=== PATIENT | male | born 1945 | race Caucasian/White ===

== ENCOUNTER 2021-07-27 15:25 | Inpatient (IN) | payer MEDICARE, BC ==
[~2021-07-27] VITALS: Ht 180.3 cm; Wt 104.5 kg
[2021-07-27 16:35] LABS: BASOPHILS % (AUTO) 0.3 % (0-1); EOSINOPHILS # (AUTO) 0.1 X10'3 (0-0.9); EOSINOPHILS % (AUTO) 1.2 % (0-6); HEMATOCRIT 42.6 % (42.0-52.0); HEMOGLOBIN 14.9 g/dl (14.0-17.9); LYMPHOCYTES # (AUTO) 1.4 X10'3 (1.1-4.8); LYMPHOCYTES % (AUTO) 11.8 % (21-51); MEAN CORPUSCULAR HEMOGLOBIN 32.6 PG (27.0-31.0); MEAN CORPUSCULAR HGB CONC 35.1 g/dL (33.0-36.5); MEAN CORPUSCULAR VOLUME 92.9 FL (78-98); MEAN PLATELET VOLUME 7.5 FL (7.4-10.4); MONOCYTES # (AUTO) 0.9 X10'3 (0-0.9); MONOCYTES % (AUTO) 7.9 % (2-12); NEUTROPHILS # (AUTO) 9.4 X10'3 (1.8-7.7); NEUTROPHILS % (AUTO) 78.8 % (42-75); PLATELET COUNT 304 X10'3 (140-440); RED BLOOD COUNT 4.58 X10'6 (4.70-6.10); RED CELL DISTRIBUTION WIDTH 12.8 % (11.5-14.5); WHITE BLOOD COUNT 11.9 X10'3 (4.5-11.0)
[2021-07-27 16:49] LABS: ALANINE AMINOTRANSFERASE 30 U/L (12-78); ALBUMIN 3.7 G/DL (3.4-5.0); ALBUMIN/GLOBULIN RATIO 0.7 (1.1-1.5); ALKALINE PHOSPHATASE 72 IU/L (46-116); ANION GAP 15 (8-16); ASPARTATE AMINO TRANSFERASE 13 U/L (10-37); BLOOD UREA NITROGEN 81 MG/DL (7-18); BUN/CREATININE RATIO 10.4 (5.4-32.0); CALCIUM 9.6 MG/DL (8.5-10.1); CHLORIDE 106 MMOL/L (99-107); CREATININE 7.77 MG/DL (0.60-1.10); GLUCOSE 113 MG/DL (70-104); LIPASE 205 U/L (73-393); POTASSIUM 4.1 MMOL/L (3.5-5.1); SODIUM 143 MMOL/L (135-145); TOTAL CARBON DIOXIDE 21.8 MMOL/L (24-32); TOTAL PROTEIN 8.8 G/DL (6.4-8.2); eGFR 7 ML/MIN
[2021-07-27 17:16] LABS: CLARITY,URINE CLOUDY (Clear); COLOR,URINE YELLOW (Yellow); GLUCOSE, URINE NEGATIVE (Neg); KETONES,URINE NEGATIVE (Neg); PROTEIN,URINE 30 mg/dl (Neg); UA COLLECTION TYPE VOIDED
[2021-07-27 17:17] LABS: LEUKOCYTE ESTERASE ,URINE NEGATIVE (Neg); NITRITES, URINE NEGATIVE (Neg); OCCULT BLOOD,URINE LARGE (Neg); UROBILINOGEN,URINE 0.2 E.U/dL (0.2-1.0)
[2021-07-27 17:32] LABS: RBC,URINE TNTC /HPF (0-2); SQUAMOUS EPITHELIAL CELL,UR FEW /LPF (FEW)
[2021-07-27 17:33] LABS: BACTERIA,URINE 1+ /HPF (Neg)
--- NOTE | 2021-07-27 19:38 | NUR ---
MD PINTO AT BEDSIDE. NEPHROLOGY CONSULT.
[2021-07-27] MEDS ORDERED: temazepam 15mg capsule PO PRN (21:00)
[2021-07-27] MEDS ORDERED: acetaminophen 325mg tablet PO PRN ×2 (21:05)
[2021-07-27] MEDS ORDERED: acetaminophen 650mg rectal suppository RC PRN (21:05)
[2021-07-27] MEDS ORDERED: LORazepam 2 mg/ml vial IV PRN (21:05)
[2021-07-27] MEDS: sodium chloride 0.45% 1,000 ML IV SCH (21:05)
[2021-07-27] MEDS ORDERED: mag hydrox/Alum hydrox/simeth 30ml oral suspension PO PRN (21:05)
[2021-07-27] MEDS ORDERED: HYDROcodone/acetaminophen 5mg/325mg tablet PO PRN (21:05)
[2021-07-27] MEDS ORDERED: diphenhydrAMINE 25mg capsule PO PRN (21:05)
[2021-07-27] MEDS ORDERED: ondansetron/PF 4mg/2ml inj IV PRN (21:05)
[2021-07-27] MEDS ORDERED: ondansetron 4mg rapidly disintigrating tab PO PRN (21:05)
[2021-07-27] MEDS ORDERED: haloperidol 5mg tablet PO PRN (21:05)
[2021-07-27] MEDS ORDERED: diphenhydrAMINE 50 mg/ml inj IV PRN (21:05)
[2021-07-27] MEDS ORDERED: bisacodyl 10mg suppository rectal RC PRN (21:05)
[2021-07-27] MEDS ORDERED: haloperidol lactate 5mg/ml inj IM PRN (21:05)
[2021-07-27] MEDS ORDERED: morphine 2 MG/ML inj. syringe IV PRN (21:05)
[2021-07-27] MEDS ORDERED: magnesium hydroxide 30ml (MOM) UD suspension PO PRN (21:05)
[2021-07-27 21:46] LABS: HEMOGLOBIN A1C 5.5 % (4.5-6.2)
[2021-07-27 21:47] LABS: PARTIAL THROMBOPLASTIN TIME 34 SECONDS (22-32)
[2021-07-27 21:57] LABS: CREATINE KINASE 26 U/L (39-308); ETHANOL < 0.010 GM/DL (0.0-0.010); MAGNESIUM 2.3 MG/DL (1.5-2.4); PHOSPHORUS 4.2 MG/DL (2.3-4.5)
--- NOTE | 2021-07-27 23:09 | NUR ---
UPDATED DR. RODRIGUEZ WITH PT VITALS. SBP 160. OKAYED TO HOLD BP MEDS.
[2021-07-27] MEDS ORDERED: hydrALAZINE 20mg/ml inj. IV PRN (23:35)
[2021-07-28] MEDS: amLODIPine 5mg tablet PO SCH ×2 (00:24→07:44)
[2021-07-28 00:57] LABS: BASOPHILS % (AUTO) 0.4 % (0-1); EOSINOPHILS # (AUTO) 0.3 X10'3 (0-0.9); EOSINOPHILS % (AUTO) 2.3 % (0-6); HEMATOCRIT 39.3 % (42.0-52.0); HEMOGLOBIN 13.8 g/dl (14.0-17.9); LYMPHOCYTES # (AUTO) 1.6 X10'3 (1.1-4.8); LYMPHOCYTES % (AUTO) 14.9 % (21-51); MEAN CORPUSCULAR HEMOGLOBIN 32.5 PG (27.0-31.0); MEAN CORPUSCULAR HGB CONC 35.2 g/dL (33.0-36.5); MEAN CORPUSCULAR VOLUME 92.4 FL (78-98); MEAN PLATELET VOLUME 7.4 FL (7.4-10.4); MONOCYTES % (AUTO) 9.6 % (2-12); NEUTROPHILS # (AUTO) 7.8 X10'3 (1.8-7.7); NEUTROPHILS % (AUTO) 72.8 % (42-75); PLATELET COUNT 272 X10'3 (140-440); RED BLOOD COUNT 4.26 X10'6 (4.70-6.10); RED CELL DISTRIBUTION WIDTH 12.7 % (11.5-14.5); WHITE BLOOD COUNT 10.8 X10'3 (4.5-11.0)
[2021-07-28 01:16] LABS: ALANINE AMINOTRANSFERASE 29 U/L (12-78); ALBUMIN 3.3 G/DL (3.4-5.0); ALBUMIN/GLOBULIN RATIO 0.7 (1.1-1.5); ALKALINE PHOSPHATASE 64 IU/L (46-116); ANION GAP 10 (8-16); ASPARTATE AMINO TRANSFERASE 15 U/L (10-37); BILIRUBIN,TOTAL 0.9 MG/DL (0.1-1.0); BLOOD UREA NITROGEN 58 MG/DL (7-18); BUN/CREATININE RATIO 14.6 (5.4-32.0); CALCIUM 9.2 MG/DL (8.5-10.1); CHLORIDE 109 MMOL/L (99-107); CHOL/HDL RATIO 5.6 (0.00-4.99); CHOLESTEROL 195 MG/DL (0-200); CREATININE 3.97 MG/DL (0.60-1.10); GLUCOSE 101 MG/DL (70-104); HDL CHOLESTEROL 35 MG/DL (35-60); LDL CHOLESTEROL 143 MG/DL (50-100); POTASSIUM 4.4 MMOL/L (3.5-5.1); SODIUM 143 MMOL/L (135-145); TOTAL CARBON DIOXIDE 24.5 MMOL/L (24-32); TRIGLYCERIDES 120 MG/DL (20-135); eGFR 15 ML/MIN
[2021-07-28 02:00] VITALS: BP 137/68
[2021-07-28] MEDS: niCARDipine-NS 40mg/200ml IVPB 200 ML IV SCH ×4 (03:30→22:47)
--- NOTE | 2021-07-28 06:49 | NUR ---
ULTRASOUND AT BEDSIDE.
[2021-07-28] MEDS: pantoprazole 40mg Tablet.DR PO SCH (07:43)
[2021-07-28] MEDS: CefTRIAXone/D5W-Rocephin 1gm 50 ML IV SCH (07:45)
[2021-07-28] MEDS: docusate sod 100mg capsule PO SCH ×2 (07:45→21:23)
[2021-07-28] MEDS ORDERED: folic acid 1mg/0.2ml inj IV SCH (08:00)
[2021-07-28] MEDS ORDERED: folic acid inj. 2 MG, thiamine inj. 100 MG, MVI, adult No.4 with vit. K 10 ML in dextro... IV SCH ×4 (08:00)
[2021-07-28] MEDS ORDERED: thiamine inj. 100 MG in normal saline 100ml IV soln 100 ML IV SCH (08:00)
[2021-07-28] MEDS: thiamine 100mg tablet PO SCH (10:55)
[2021-07-28] MEDS: sodium chloride 0.45% 1,000 ML IV SCH ×2 (12:13→21:20)
[2021-07-28] MEDS ORDERED: NO HOME MEDS (13:16)
[2021-07-28] MEDS: lactobacillus rhamnosus 10,000 MMU CELLS/CAPSULE PO SCH (21:23)
[2021-07-28 22:00] VITALS: BP 144/71
[2021-07-29] MEDS ORDERED: LORazepam 1 MG tablet PO PRN (01:25)
[2021-07-29] MEDS: LORazepam 1 MG tablet PO PRN (01:37)
[2021-07-29] MEDS: niCARDipine-NS 40mg/200ml IVPB 200 ML IV SCH ×2 (04:22→08:16)
[2021-07-29 06:00] VITALS: BP 115/58
[2021-07-29 07:04] LABS: BASOPHILS % (AUTO) 0.5 % (0-1); EOSINOPHILS # (AUTO) 0.3 X10'3 (0-0.9); EOSINOPHILS % (AUTO) 2.6 % (0-6); HEMATOCRIT 35.2 % (42.0-52.0); HEMOGLOBIN 12.5 g/dl (14.0-17.9); LYMPHOCYTES # (AUTO) 1.2 X10'3 (1.1-4.8); LYMPHOCYTES % (AUTO) 11.9 % (21-51); MEAN CORPUSCULAR HEMOGLOBIN 32.7 PG (27.0-31.0); MEAN CORPUSCULAR HGB CONC 35.4 g/dL (33.0-36.5); MEAN CORPUSCULAR VOLUME 92.5 FL (78-98); MEAN PLATELET VOLUME 7.9 FL (7.4-10.4); MONOCYTES % (AUTO) 9.5 % (2-12); NEUTROPHILS # (AUTO) 7.7 X10'3 (1.8-7.7); NEUTROPHILS % (AUTO) 75.5 % (42-75); PLATELET COUNT 272 X10'3 (140-440); RED BLOOD COUNT 3.81 X10'6 (4.70-6.10); RED CELL DISTRIBUTION WIDTH 12.6 % (11.5-14.5); WHITE BLOOD COUNT 10.2 X10'3 (4.5-11.0)
--- NOTE | 2021-07-29 07:07 | NUR ---
Problems reprioritized. Patient report given, questions answered & plan of care reviewed with PARISH DENNY.
[2021-07-29 07:24] LABS: ALANINE AMINOTRANSFERASE 20 U/L (12-78); ALBUMIN 2.6 G/DL (3.4-5.0); ALBUMIN/GLOBULIN RATIO 0.7 (1.1-1.5); ALKALINE PHOSPHATASE 52 IU/L (46-116); ANION GAP 12 (8-16); ASPARTATE AMINO TRANSFERASE 20 U/L (10-37); BILIRUBIN,TOTAL 0.6 MG/DL (0.1-1.0); BLOOD UREA NITROGEN 30 MG/DL (7-18); BUN/CREATININE RATIO 20.4 (5.4-32.0); CHLORIDE 113 MMOL/L (99-107); CREATININE 1.47 MG/DL (0.60-1.10); GLUCOSE 118 MG/DL (70-104); SODIUM 146 MMOL/L (135-145); TOTAL CARBON DIOXIDE 21.2 MMOL/L (24-32); TOTAL PROTEIN 6.3 G/DL (6.4-8.2); eGFR 47 ML/MIN
[2021-07-29] MEDS: docusate sod 100mg capsule PO SCH ×2 (08:00→20:05)
[2021-07-29] MEDS: sodium chloride 0.45% 1,000 ML IV SCH (08:07)
[2021-07-29] MEDS: CefTRIAXone/D5W-Rocephin 1gm 50 ML IV SCH (08:21)
--- NOTE | 2021-07-29 09:23 | NUR ---
PTT resuletd 38, clam bed laborer arrived just now to redraw, they had a concern that the sample clotted. awaiting new ptt and continuing at current rate.
--- NOTE | 2021-07-29 10:00 | NUR ---
MD Aguilar rounded on pt. bp 119, she wants cardeen gtt off and is aware he has not had po coverage yet. gtt stopped. po given shortly after. call to pharmacy for am dose of mucomyst
[2021-07-29] MEDS: lactobacillus rhamnosus 10,000 MMU CELLS/CAPSULE PO SCH ×2 (10:01→20:06)
[2021-07-29] MEDS: amLODIPine 5mg tablet PO SCH ×2 (10:01→20:05)
[2021-07-29] MEDS: pantoprazole 40mg Tablet.DR PO SCH (10:01)
[2021-07-29] MEDS: folic acid 1mg tablet PO SCH (10:02)
[2021-07-29] MEDS: thiamine 100mg tablet PO SCH (10:02)
[2021-07-29] MEDS: normal saline 1000ml 1,000 ML IV SCH (10:07)
[2021-07-29] MEDS: acetylcysteine 200 MG/ml 4ml vial PO SCH ×2 (10:16→20:09)
[2021-07-29 11:00] VITALS: BP 134/69
--- NOTE | 2021-07-29 12:45 | NUR ---
oob to chair with PT, mri transporting to mri now. went home, she was getting frustrated with his redirecting anger at her. currently [facility]. tele removed for transport.
--- NOTE | 2021-07-29 13:26 | NUR ---
return from mri and back on monitor. stable, back to bed, sitter in room attentive. eating meal
[2021-07-29 15:00] VITALS: BP 151/89
--- NOTE | 2021-07-29 16:33 | NUR ---
after 2 pages to pharmacy for medication , placed a phone call for mucomyst to be deliered. arrived apro 10 min ago. next dose due shortly to be on schedule.
[2021-07-29 18:00] VITALS: BP 149/81
--- NOTE | 2021-07-29 18:00 | NUR ---
MD Aguilar ordered tele neuro consult and tele neuro device being brought from icu per charge nurse
--- NOTE | 2021-07-29 18:44 | NUR ---
Patient in room PCU 3025. I have received report from DENISHA Briones and had the opportunity to ask questions and assume patient care.
--- NOTE | 2021-07-29 18:46 | NUR ---
Patient in room PCU 3025. I have received report from Anselmo DENNY and had the opportunity to ask questions and assume patient care.
--- NOTE | 2021-07-29 18:50 | NUR ---
Problems reprioritized. Patient report given, questions answered & plan of care reviewed with Delmis DENNY.
[2021-07-29] MEDS ORDERED: LORazepam 2 mg/ml vial IV PRN (21:05)
[2021-07-29 22:00] VITALS: BP 159/91
[2021-07-30 02:00] VITALS: BP 158/86
[2021-07-30] MEDS: normal saline 1000ml 1,000 ML IV SCH ×3 (02:15→20:02)
--- NOTE | 2021-07-30 06:30 | NUR ---
Patient in room PCU 3025. I have received report from Fannie MTZ and had the opportunity to ask questions and assume patient care.
--- NOTE | 2021-07-30 06:30 | NUR ---
Problems reprioritized. Patient report given, questions answered & plan of care reviewed with DENISHA Herrera.
[2021-07-30 06:57] LABS: BASOPHILS # (AUTO) 0.1 X10'3 (0-0.2); BASOPHILS % (AUTO) 0.7 % (0-1); EOSINOPHILS # (AUTO) 0.4 X10'3 (0-0.9); EOSINOPHILS % (AUTO) 3.9 % (0-6); HEMATOCRIT 40.4 % (42.0-52.0); HEMOGLOBIN 14.2 g/dl (14.0-17.9); LYMPHOCYTES # (AUTO) 1.5 X10'3 (1.1-4.8); LYMPHOCYTES % (AUTO) 14.1 % (21-51); MEAN CORPUSCULAR HEMOGLOBIN 32.7 PG (27.0-31.0); MEAN CORPUSCULAR HGB CONC 35.1 g/dL (33.0-36.5); MONOCYTES # (AUTO) 0.8 X10'3 (0-0.9); MONOCYTES % (AUTO) 7.6 % (2-12); NEUTROPHILS % (AUTO) 73.7 % (42-75); PLATELET COUNT 337 X10'3 (140-440); RED BLOOD COUNT 4.35 X10'6 (4.70-6.10); RED CELL DISTRIBUTION WIDTH 12.7 % (11.5-14.5); WHITE BLOOD COUNT 10.8 X10'3 (4.5-11.0)
--- NOTE | 2021-07-30 06:58 | NUR ---
Student documentation: I have reviewed and agree with all interventions, assessments performed and documented by Suma Godinez Student Medication Administration: For this medication-pass time frame, all medication were reviewed, dispensed, administered and documented per hospital policy by Suma Godinez.
[2021-07-30 07:00] VITALS: BP 156/91
[2021-07-30 07:01] LABS: ANION GAP 14 (8-16); CHLORIDE 109 MMOL/L (99-107); GLUCOSE 104 MG/DL (70-104); POTASSIUM 3.6 MMOL/L (3.5-5.1); SODIUM 145 MMOL/L (135-145); TOTAL CARBON DIOXIDE 21.8 MMOL/L (24-32)
[2021-07-30 07:02] LABS: ALANINE AMINOTRANSFERASE 20 U/L (12-78); ALBUMIN 3.1 G/DL (3.4-5.0); ALBUMIN/GLOBULIN RATIO 0.8 (1.1-1.5); ALKALINE PHOSPHATASE 60 IU/L (46-116); ASPARTATE AMINO TRANSFERASE 21 U/L (10-37); BILIRUBIN,TOTAL 0.7 MG/DL (0.1-1.0); BLOOD UREA NITROGEN 16 MG/DL (7-18); BUN/CREATININE RATIO 13.7 (5.4-32.0); CALCIUM 8.2 MG/DL (8.5-10.1); CREATININE 1.17 MG/DL (0.60-1.10); TOTAL PROTEIN 7.2 G/DL (6.4-8.2); eGFR 61 ML/MIN
[2021-07-30] MEDS: CefTRIAXone/D5W-Rocephin 1gm 50 ML IV SCH (08:00)
[2021-07-30] MEDS: docusate sod 100mg capsule PO SCH ×3 (08:44→20:00)
[2021-07-30] MEDS: pantoprazole 40mg Tablet.DR PO SCH (08:44)
[2021-07-30] MEDS: thiamine 100mg tablet PO SCH (08:45)
[2021-07-30] MEDS: folic acid 1mg tablet PO SCH (08:45)
[2021-07-30] MEDS: lactobacillus rhamnosus 10,000 MMU CELLS/CAPSULE PO SCH ×3 (08:45→20:00)
[2021-07-30] MEDS: acetylcysteine 200 MG/ml 4ml vial PO SCH ×2 (08:45→19:46)
[2021-07-30] MEDS: amLODIPine 5mg tablet PO SCH (08:45)
[2021-07-30] MEDS: LORazepam 1 MG tablet PO PRN ×2 (08:46→19:46)
[2021-07-30 11:00] VITALS: BP 139/81
--- NOTE | 2021-07-30 11:15 | NUR ---
Per Dr. Coon if patient leaves AMA he is to keep sarmiento
--- NOTE | 2021-07-30 11:55 | NUR ---
Patient pulled out IV this am. Patient refused IV start stating " he is going home today and he doesn't need it."
[2021-07-30 15:00] VITALS: BP 149/85
[2021-07-30 18:00] VITALS: BP 145/80
--- NOTE | 2021-07-30 18:08 | NUR ---
Problems reprioritized. Patient report given, questions answered & plan of care reviewed with Guillermina DENNY. Patient resting comfortably in no acute distress. at bedside
[2021-07-30 22:00] VITALS: BP 117/72
[2021-07-31 02:00] VITALS: BP 140/80
[2021-07-31] MEDS: normal saline 1000ml 1,000 ML IV SCH ×2 (05:08→16:14)
--- NOTE | 2021-07-31 06:19 | NUR ---
Patient in room PCU 3025. I have received report from Guillermina DENNY and had the opportunity to ask questions and assume patient care.
--- NOTE | 2021-07-31 06:25 | NUR ---
Problems reprioritized. Patient report given, questions answered & plan of care reviewed with DENISHA Perla.
[2021-07-31 07:00] VITALS: BP 130/71
[2021-07-31 07:08] LABS: BASOPHILS # (AUTO) 0.1 X10'3 (0-0.2); EOSINOPHILS # (AUTO) 0.5 X10'3 (0-0.9); EOSINOPHILS % (AUTO) 5.4 % (0-6); HEMATOCRIT 37.8 % (42.0-52.0); HEMOGLOBIN 13.1 g/dl (14.0-17.9); LYMPHOCYTES # (AUTO) 1.8 X10'3 (1.1-4.8); LYMPHOCYTES % (AUTO) 18.4 % (21-51); MEAN CORPUSCULAR HEMOGLOBIN 32.7 PG (27.0-31.0); MEAN CORPUSCULAR HGB CONC 34.7 g/dL (33.0-36.5); MEAN CORPUSCULAR VOLUME 94.2 FL (78-98); MEAN PLATELET VOLUME 7.9 FL (7.4-10.4); MONOCYTES # (AUTO) 0.9 X10'3 (0-0.9); MONOCYTES % (AUTO) 9.3 % (2-12); NEUTROPHILS # (AUTO) 6.3 X10'3 (1.8-7.7); NEUTROPHILS % (AUTO) 65.9 % (42-75); PLATELET COUNT 268 X10'3 (140-440); RED BLOOD COUNT 4.01 X10'6 (4.70-6.10); RED CELL DISTRIBUTION WIDTH 12.8 % (11.5-14.5); WHITE BLOOD COUNT 9.5 X10'3 (4.5-11.0)
[2021-07-31 07:23] LABS: ALANINE AMINOTRANSFERASE 18 U/L (12-78); ALBUMIN 2.5 G/DL (3.4-5.0); ALBUMIN/GLOBULIN RATIO 0.7 (1.1-1.5); ALKALINE PHOSPHATASE 51 IU/L (46-116); ANION GAP 9 (8-16); ASPARTATE AMINO TRANSFERASE 20 U/L (10-37); BILIRUBIN,TOTAL 0.6 MG/DL (0.1-1.0); BLOOD UREA NITROGEN 20 MG/DL (7-18); BUN/CREATININE RATIO 14.2 (5.4-32.0); CALCIUM 7.9 MG/DL (8.5-10.1); CHLORIDE 113 MMOL/L (99-107); CREATININE 1.41 MG/DL (0.60-1.10); GLUCOSE 86 MG/DL (70-104); POTASSIUM 3.9 MMOL/L (3.5-5.1); SODIUM 146 MMOL/L (135-145); TOTAL CARBON DIOXIDE 23.6 MMOL/L (24-32); TOTAL PROTEIN 6.3 G/DL (6.4-8.2); eGFR 49 ML/MIN
[2021-07-31] MEDS: pantoprazole 40mg Tablet.DR PO SCH (07:39)
[2021-07-31] MEDS: acetylcysteine 200 MG/ml 4ml vial PO SCH ×2 (07:40→19:59)
[2021-07-31] MEDS: thiamine 100mg tablet PO SCH (07:40)
[2021-07-31] MEDS: docusate sod 100mg capsule PO SCH ×2 (07:40→20:00)
[2021-07-31] MEDS: CefTRIAXone/D5W-Rocephin 1gm 50 ML IV SCH (07:40)
[2021-07-31] MEDS: amLODIPine 5mg tablet PO SCH (07:40)
[2021-07-31] MEDS: folic acid 1mg tablet PO SCH (07:40)
[2021-07-31] MEDS: lactobacillus rhamnosus 10,000 MMU CELLS/CAPSULE PO SCH ×2 (07:40→19:59)
[2021-07-31] MEDS ORDERED: NOR5T PO (08:38)
[2021-07-31] MEDS ORDERED: PANT40TA54 PO (08:38)
[2021-07-31 11:00] VITALS: BP 142/87
--- NOTE | 2021-07-31 14:22 | NUR ---
Page Sent to Dr. Sharma PAGER ID: [phone] MESSAGE: [id number] Winilhd. Per Dr. Mendez patient is not to be DC until urology appt can be made. [phone]
[2021-07-31 15:00] VITALS: BP 147/93
--- NOTE | 2021-07-31 18:25 | NUR ---
Problems reprioritized. Patient report given, questions answered & plan of care reviewed with Guillermina DENNY . Patient in no acute distress.
[2021-07-31] MEDS ORDERED: LORazepam 1 MG tablet PO PRN (21:05)
[2021-07-31] MEDS ORDERED: LORazepam 2 mg/ml vial IV PRN (21:05)
[2021-07-31 22:00] VITALS: BP 165/91
[2021-08-01 02:00] VITALS: BP 170/87
[2021-08-01] MEDS: normal saline 1000ml 1,000 ML IV SCH (02:14)
[2021-08-01 06:05] LABS: BASOPHILS # (AUTO) 0.1 X10'3 (0-0.2); BASOPHILS % (AUTO) 0.9 % (0-1); EOSINOPHILS # (AUTO) 0.5 X10'3 (0-0.9); EOSINOPHILS % (AUTO) 5.2 % (0-6); HEMATOCRIT 37.9 % (42.0-52.0); HEMOGLOBIN 13.3 g/dl (14.0-17.9); LYMPHOCYTES # (AUTO) 1.7 X10'3 (1.1-4.8); LYMPHOCYTES % (AUTO) 19.5 % (21-51); MEAN CORPUSCULAR HEMOGLOBIN 32.3 PG (27.0-31.0); MEAN CORPUSCULAR HGB CONC 35.1 g/dL (33.0-36.5); MEAN CORPUSCULAR VOLUME 92.2 FL (78-98); MEAN PLATELET VOLUME 7.9 FL (7.4-10.4); MONOCYTES # (AUTO) 0.7 X10'3 (0-0.9); MONOCYTES % (AUTO) 8.1 % (2-12); NEUTROPHILS # (AUTO) 5.9 X10'3 (1.8-7.7); NEUTROPHILS % (AUTO) 66.3 % (42-75); PLATELET COUNT 289 X10'3 (140-440); RED BLOOD COUNT 4.11 X10'6 (4.70-6.10); RED CELL DISTRIBUTION WIDTH 12.4 % (11.5-14.5); WHITE BLOOD COUNT 8.8 X10'3 (4.5-11.0)
[2021-08-01 06:20] LABS: ANION GAP 13 (8-16); BLOOD UREA NITROGEN 16 MG/DL (7-18); BUN/CREATININE RATIO 12.8 (5.4-32.0); CHLORIDE 110 MMOL/L (99-107); CREATININE 1.25 MG/DL (0.60-1.10); GLUCOSE 88 MG/DL (70-104); POTASSIUM 3.8 MMOL/L (3.5-5.1); SODIUM 146 MMOL/L (135-145); TOTAL CARBON DIOXIDE 22.9 MMOL/L (24-32)
[2021-08-01 06:21] LABS: ALANINE AMINOTRANSFERASE 25 U/L (12-78); ALBUMIN 2.8 G/DL (3.4-5.0); ALBUMIN/GLOBULIN RATIO 0.7 (1.1-1.5); ALKALINE PHOSPHATASE 56 IU/L (46-116); ASPARTATE AMINO TRANSFERASE 24 U/L (10-37); BILIRUBIN,TOTAL 0.7 MG/DL (0.1-1.0); CALCIUM 8.2 MG/DL (8.5-10.1); TOTAL PROTEIN 6.7 G/DL (6.4-8.2); eGFR 56 ML/MIN
--- NOTE | 2021-08-01 06:30 | NUR ---
Patient in room U 3025. I have received report from Guillermina DENNY and had the opportunity to ask questions and assume patient care. Patient resting comfortably in bed.
--- NOTE | 2021-08-01 06:40 | NUR ---
Problems reprioritized. Patient report given, questions answered & plan of care reviewed with DENISHA Perla.
[2021-08-01] MEDS: CefTRIAXone/D5W-Rocephin 1gm 50 ML IV SCH (08:00)
[2021-08-01] MEDS: thiamine 100mg tablet PO SCH (09:24)
[2021-08-01] MEDS: docusate sod 100mg capsule PO SCH (09:24)
[2021-08-01] MEDS: folic acid 1mg tablet PO SCH (09:24)
[2021-08-01] MEDS: lactobacillus rhamnosus 10,000 MMU CELLS/CAPSULE PO SCH (09:24)
[2021-08-01] MEDS: pantoprazole 40mg Tablet.DR PO SCH (09:24)
[2021-08-01] MEDS: acetylcysteine 200 MG/ml 4ml vial PO SCH (09:25)
[2021-08-01 09:40] VITALS: BP_SYST 177
[2021-08-01] MEDS: amLODIPine 5mg tablet PO SCH (09:40)
--- NOTE | 2021-08-01 12:00 | NUR ---
Patient it stable and able to discharge per Dr Mendez and Dr. Abebe. All discharge instructions have been reviewed with the patient and all questions answered. Prescriptions were electronically sent to the pharmacy. PIV was discontinued and canula was intact. Belongings were collected and sent with the patient. [facility]
== END 2021-08-01 12:30 | disposition home or self-care (01) | DRG 682 ==
LOC: ER 15:26 → ED HOLD 21:13 → UNDOADMIN 21:13 → ED HOLD 07-28 12:24 → PCU 3S 07-28 17:54
PROVIDERS: ADMIT Family Medicine; ATTEND Internal Medicine
DX: N17.9 Acute kidney failure, unspecified (principal); G93.41 Metabolic encephalopathy; I16.1 Hypertensive emergency; E87.2 Acidosis; N13.2 Hydronephrosis with renal and ureteral calculous obstruction; I12.9 Hypertensive chronic kidney disease with stage 1 through stage 4 chronic kidney disease, or unspecified chronic kidney disease; N40.1 Benign prostatic hyperplasia with lower urinary tract symptoms; R62.7 Adult failure to thrive; R63.0 Anorexia; R33.8 Other retention of urine; E86.0 Dehydration; F10.10 Alcohol abuse, uncomplicated; G93.0 Cerebral cysts; N18.9 Chronic kidney disease, unspecified; Z91.14 Patient's other noncompliance with medication regimen; Z68.32 Body mass index [BMI] 32.0-32.9, adult
CPT/HCPCS: 36415; 70450; 70551; 71250; 74176; 76700; 76770; 80053; 80061; 80320; 81001; 82550; 83036; 83690; 83735; 83880; 84100; 84443; 84484; 85025; 85610; 85730; 87088; 97116; 97162; 97530; 99285; G0378; J0360; J0696; J2060; J7030

== ENCOUNTER 2021-08-29 15:45 | Emergency (ER) | payer MEDICARE, BC ==
[~2021-08-29] VITALS: Ht 182.9 cm; Wt 100.0 kg
[~2021-08-29 15:45] MED LIST: NOR5T PO; PANT40TA54 PO
[2021-08-29 17:10] VITALS: BP 159/96
--- NOTE | 2021-08-29 17:43 | NUR ---
AT BEDSIDE FOR DC
== END 2021-08-29 17:44 | disposition home or self-care (01) ==
LOC: ER 15:45
DX: R55 Syncope and collapse (principal); R42 Dizziness and giddiness; Z79.899 Other long term (current) drug therapy
CPT/HCPCS: 93005; 99283

== ENCOUNTER 2021-09-15 08:59 | Emergency (ER) | payer MEDICARE, BC ==
[~2021-09-15] VITALS: Ht 182.9 cm; Wt 106.5 kg
[2021-09-15 10:05] VITALS: BP 208/151
[2021-09-15 11:29] LABS: BASOPHILS % (AUTO) 0.2 % (0-1); EOSINOPHILS # (AUTO) 0.2 X10'3 (0-0.9); EOSINOPHILS % (AUTO) 1.4 % (0-6); HEMATOCRIT 42.6 % (42.0-52.0); HEMOGLOBIN 14.6 g/dl (14.0-17.9); LYMPHOCYTES # (AUTO) 1.1 X10'3 (1.1-4.8); LYMPHOCYTES % (AUTO) 9.6 % (21-51); MEAN CORPUSCULAR HEMOGLOBIN 32.9 PG (27.0-31.0); MEAN CORPUSCULAR HGB CONC 34.3 g/dL (33.0-36.5); MEAN CORPUSCULAR VOLUME 95.8 FL (78-98); MEAN PLATELET VOLUME 7.4 FL (7.4-10.4); MONOCYTES % (AUTO) 8.9 % (2-12); NEUTROPHILS # (AUTO) 9.1 X10'3 (1.8-7.7); NEUTROPHILS % (AUTO) 79.9 % (42-75); PLATELET COUNT 294 X10'3 (140-440); RED BLOOD COUNT 4.45 X10'6 (4.70-6.10); RED CELL DISTRIBUTION WIDTH 14.7 % (11.5-14.5); WHITE BLOOD COUNT 11.4 X10'3 (4.5-11.0)
[2021-09-15 11:54] LABS: ALANINE AMINOTRANSFERASE 17 U/L (12-78); ALBUMIN 4.4 G/DL (3.4-5.0); ALKALINE PHOSPHATASE 66 IU/L (46-116); ANION GAP 12 (8-16); ASPARTATE AMINO TRANSFERASE 21 U/L (10-37); BILIRUBIN,TOTAL 1.2 MG/DL (0.1-1.0); BLOOD UREA NITROGEN 33 MG/DL (7-18); BUN/CREATININE RATIO 11.4 (5.4-32.0); CALCIUM 9.9 MG/DL (8.5-10.1); CHLORIDE 107 MMOL/L (99-107); GLUCOSE 126 MG/DL (70-104); SODIUM 144 MMOL/L (135-145); TOTAL PROTEIN 8.7 G/DL (6.4-8.2); eGFR 21 ML/MIN
--- NOTE | 2021-09-15 13:43 | NUR ---
16f Catheter placed with free flowing urine. bladder scan prior to cath showed >1538 ml. leg bag given. Urine sent to lab for analysis.
--- NOTE | 2021-09-15 14:03 | NUR ---
Post void showing 0mls. Recheck of temperature 98.6
[2021-09-15 14:07] LABS: CLARITY,URINE CLOUDY (Clear); COLOR,URINE YELLOW (Yellow); GLUCOSE, URINE NEGATIVE (Neg); KETONES,URINE NEGATIVE (Neg); LEUKOCYTE ESTERASE ,URINE LARGE (Neg); NITRITES, URINE NEGATIVE (Neg); OCCULT BLOOD,URINE SMALL (Neg); PROTEIN,URINE NEGATIVE (Neg); UROBILINOGEN,URINE 0.2 E.U/dL (0.2-1.0)
[2021-09-15 14:10] LABS: UA COLLECTION TYPE FOLEY CATH
[2021-09-15 14:12] LABS: BACTERIA,URINE 2+ /HPF (Neg); MUCUS STRANDS NONE SEEN /LPF (Neg); SQUAMOUS EPITHELIAL CELL,UR NONE SEEN /LPF (FEW); WBC,URINE TNTC /HPF (0-4)
[2021-09-15 14:13] LABS: WBC CLUMPS,URINE MANY /HPF (NEGATIVE)
[2021-09-15] MEDS ORDERED: CEPH-585 PO (14:23)
== END 2021-09-15 13:46 | disposition home or self-care (01) ==
LOC: ER 09:00
DX: R33.9 Retention of urine, unspecified (principal); N17.8 Other acute kidney failure; N13.8 Other obstructive and reflux uropathy; Z79.2 Long term (current) use of antibiotics; Z79.899 Other long term (current) drug therapy
CPT/HCPCS: 36415; 80053; 81001; 85025; 87077; 87088; 87186; 99284